=== PATIENT | female | born 2000 | race Caucasian/White ===

== ENCOUNTER 2023-04-23 08:51 | Emergency (ER) | payer BC ==
[2023-04-23] MEDS ORDERED: Ketorolac Tromethamine 30 MG/ML VIAL ONE (10:20)
[2023-04-23] MEDS ORDERED: Boostrix 0.5 ML (Tdap) VIAL (>/=7 yrs of age) ONE (10:21)
[2023-04-23] MEDS ORDERED: Ibuprofen 200 MG TAB ONE (10:27)
== END 2023-04-23 11:10 | disposition home or self-care (01) ==
LOC: ERS 08:51
DX: R07.81 Pleurodynia (principal); M25.512 Pain in left shoulder; M79.652 Pain in left thigh; V49.9XXA Car occupant (driver) (passenger) injured in unspecified traffic accident, initial encounter; Z23 Encounter for immunization
CPT/HCPCS: 90715; 93005; J1885